=== PATIENT | female | born 1990 | race Caucasian/White ===

== ENCOUNTER 2024-01-02 15:31 | Emergency (ER) | payer SELFPAY ==
[~2024-01-02] VITALS: Ht 154.9 cm; Wt 63.5 kg
[2024-01-02 15:39] VITALS: BP 129/84; PULSE 99; RESP 18; TEMP 98; O2SAT 99
[2024-01-02] MEDS: ACETAMINOPHEN EXTRA STRENGTH 500 MG TAB PO ONE (16:58)
[2024-01-02] MEDS ORDERED: ONDA-188 SL (17:35)
[2024-01-02] MEDS ORDERED: NAPR-1704 PO (17:35)
[2024-01-02] MEDS: KETOROLAC 30 MG/ML VIAL IM ONE (17:37)
[2024-01-02 17:42] VITALS: BP 129/84; PULSE 99; RESP 18; TEMP 98; O2SAT 99
== END 2024-01-02 17:44 | disposition home or self-care (01) ==
LOC: MED 15:31
DX: S09.90XA Unspecified injury of head, initial encounter (principal); S20.213A Contusion of bilateral front wall of thorax, initial encounter; S70.02XA Contusion of left hip, initial encounter; S70.01XA Contusion of right hip, initial encounter; Z79.1 Long term (current) use of non-steroidal anti-inflammatories (NSAID); V23.49XA Other motorcycle driver injured in collision with car, pick-up truck or van in traffic accident, initial encounter; Y93.89 Activity, other specified; Y92.89 Other specified places as the place of occurrence of the external cause; Y99.8 Other external cause status
CPT/HCPCS: 70450; 71111; 73521; 81025; 96372; 99285; J1885